=== PATIENT | male | born 1970 | race Caucasian/White ===

== ENCOUNTER 2019-05-30 11:40 | Emergency (ER) | payer MEDICAID ==
[~2019-05-30] VITALS: Ht 170.2 cm; Wt 90.7 kg
--- NOTE | 2019-05-30 11:43 | NUR ---
PT AMBULATED TO ER BED 11
[2019-05-30 11:45] VITALS: BP 102/71
--- NOTE | 2019-05-30 11:57 | NUR ---
PT BIB SELF WITH C/O RASH TO BACK AND LEGS X2-3 WEEKS. STATES ITCHES MORE AT THE NIGHT TIME. PER PT HE LIVES IN HOUSE THAT HAS BED BUGS, THINKS THE RASH IS DUE TO BUG BITES. RASH MORE AT THE BACK . DENIES NAY CHILLS, FEVER, N,V OR DIARRHEA. NO MEDS TAKEN ATR HOME. DENIES ANY MEDICAL HX. NO MEDS TAKEN AT HOME. ER MD TO SEE THE PT. WILL CONTINUE TO [facility] PT. HX DENIES
[2019-05-30 12:30] VITALS: BP 102/71
--- NOTE | 2019-05-30 12:30 | NUR ---
Patient discharged with v/s stable. Written and verbal after care instructions given and explained. Patient alert, oriented and verbalized understanding of instructions. Ambulatory with steady gait. All questions addressed prior to discharge. ID band removed. Patient advised to follow up with PMD. Rx of BENADRYL AND TRIAMCINOLONE ACETONIDE given. Patient educated on indication of medication including possible reaction and side effects. Opportunity to ask questions provided and answered.
== END 2019-05-30 12:30 | disposition home or self-care (01) ==
LOC: MED 11:40
DX: R21 Rash and other nonspecific skin eruption (principal)
CPT/HCPCS: 99283

== ENCOUNTER 2020-07-31 17:15 | Emergency (ER) | payer MEDICAID, OTHER ==
[~2020-07-31] VITALS: Ht 172.7 cm; Wt 93.0 kg
[2020-07-31 17:27] VITALS: BP 123/72
--- NOTE | 2020-07-31 17:42 | NUR ---
50/F BIB SELF C/O BODY ACHE, RUNNY NOSE X 2 DAYS. SON HAD COVID TESTED + 3 DAYS AGO. MED HX: DENIES
[2020-07-31] MEDS ORDERED: ACETAMINOPHEN 325 MG TAB PO ONE (17:50)
--- NOTE | 2020-07-31 18:18 | NUR ---
Patient discharged with v/s stable. Written and verbal after care instructions given and explained. Patient alert, oriented and verbalized understanding of instructions. Ambulatory with steady gait. All questions addressed prior to discharge. ID band removed. Patient advised to follow up with PMD.
--- NOTE | 2020-07-31 18:18 | NUR ---
COVID SWAB COLLECTED AND SENT TO LAB
[2020-07-31 18:19] VITALS: BP 123/72
== END 2020-07-31 18:18 | disposition home or self-care (01) ==
LOC: MED 17:15
DX: J34.89 Other specified disorders of nose and nasal sinuses (principal); M79.10 Myalgia, unspecified site; R50.9 Fever, unspecified; Z20.828 Contact with and (suspected) exposure to other viral communicable diseases
CPT/HCPCS: 99283; U0003; 99285